=== PATIENT | female | born 1960 | race Two or more races ===

== ENCOUNTER 2018-10-12 22:36 | Emergency (ER) | payer SELFPAY ==
[~2018-10-12] VITALS: Ht 154.9 cm; Wt 56.7 kg
--- NOTE | 2018-10-12 22:49 | NUR ---
PT BIB SELF, S/P GLF @ 0900, C/C DIZZINES, H/A AND RT WRIST INJURY, VS STABLE, PLACED ON ER BED 1, SEEN AND EVAL BY ER MD DR PUTNAM WITH TX ORDER FOR XRAY.
--- NOTE | 2018-10-12 23:56 | NUR ---
XR RT WRIST DONE.
[2018-10-13] MEDS ORDERED: IBUPROFEN 400 MG TABLET ONE (01:00)
[2018-10-13] MEDS ORDERED: IBUPROFEN 400 MG TABLET PO ONE (01:00)
[2018-10-13 01:44] VITALS: BP 132/80
== END 2018-10-13 01:00 | disposition home or self-care (01) ==
LOC: ER 22:39
DX: S00.83XA Contusion of other part of head, initial encounter (principal); M25.531 Pain in right wrist; M06.9 Rheumatoid arthritis, unspecified; M19.90 Unspecified osteoarthritis, unspecified site; F17.200 Nicotine dependence, unspecified, uncomplicated; W18.39XA Other fall on same level, initial encounter; Y93.89 Activity, other specified; Y92.89 Other specified places as the place of occurrence of the external cause; Y99.8 Other external cause status
CPT/HCPCS: 73110; 99283; A4606